=== PATIENT | female | born 1945 | race Caucasian/White ===

== ENCOUNTER 2017-01-09 12:50 | Outpatient (CLI) | payer MEDICARE, OTHER ==
--- NOTE | 2017-01-09 14:39 | Diagnostic Imaging Report ---
BIN ROSS [facility] [id number] [id number] Report Submission Date: Jan 09, 2017 1:33:08 PM CDT Patient Study Name: JASON SARAVIA Date: Jan 09, 2017 1:02:29 PM CDT Modality Type: CR Gender: F Description: CHEST : 45 Institution: [facility] Physician: BIN ROSS Examination: PA and lateral chest. History: Evaluate lung iverson. Comparison exam: None available Findings: PA lateral chest demonstrate a normal cardiac and mediastinal silhouette. Hazy parenchymal infiltrates. No blunting of the costophrenic margins. Osseous structures are appropriate for age. Impression: Bilateral parenchymal hazy infiltrates: chronicity indeterminate without older exams. No effusion. Electronically signed on Jan 09, 2017 1:33:08 PM CDT by: Tommy MORGAN
== END 2017-01-09 12:52 ==
LOC: RAD 12:50
PROVIDERS: ATTEND Family Medicine
DX: R05 Cough (principal)
CPT/HCPCS: 71020